=== PATIENT | female | born 1980 | race Caucasian/White ===

== ENCOUNTER 2024-01-10 07:59 | Day surgery (SDC) | payer MEDICAID ==
[2024-01-10] MEDS ORDERED: ACETAMINOPHEN 325 MG TABLET PO ONE (08:15)
[2024-01-10] MEDS: LACTATED RINGERS 1,000 ML IV ONE ×2 (08:35→10:44)
[2024-01-10] MEDS: ACETAMINOPHEN 325 MG TABLET PO PRN (08:39)
[2024-01-10] MEDS: metroNIDAZOLE 250 MG TABLET PO ONE (08:39)
[2024-01-10] MEDS ORDERED: fentaNYL 100 MCG/2 ML VIAL ONE (09:08)
[2024-01-10] MEDS ORDERED: PROPOFOL 500 MG/50 ML 500 MG/50 ML VIAL ONE (09:08)
[2024-01-10] MEDS ORDERED: MIDAZOLAM 2 MG/2 ML VIAL ONE (09:19)
[2024-01-10 09:30] LABS: BASOPHILS % (AUTO) 0.4 %; EOSINOPHILS # (AUTO) 0.1 10^3/uL (0.0-0.7); EOSINOPHILS % (AUTO) 1.7 %; HCT - HEMATOCRIT 37.5 % (37.0-47.0); HGB - HEMOGLOBIN 12.4 g/dL (12.0-16.0); LYMPHOCYTES # (AUTO) 2.1 10^3/uL (1.5-3.5); LYMPHOCYTES % (AUTO) 29.2 %; MEAN CORPUSCULAR HEMOGLOBIN 29.2 pg (27.0-31.0); MEAN CORPUSCULAR HGB CONC 33.1 g/dL (32.0-36.0); MEAN CORPUSCULAR VOLUME 88.4 fL (81.0-99.0); MEAN PLATELET VOLUME 9.7 fL (7.9-10.8); MONOCYTES # (AUTO) 0.5 10^3/uL (0.0-1.0); MONOCYTES % (AUTO) 7.4 %; NEUTROPHILS # (AUTO) 4.4 10^3/uL (1.5-6.6); NEUTROPHILS % (AUTO) 61.2 %; PLT - PLATELET COUNT 306 10^3/uL (130-450); RED BLOOD COUNT 4.24 10^6/uL (4.20-5.40); RED CELL DISTRIBUTION WIDTH 12.7 % (12.0-15.0); WHITE BLOOD COUNT 7.3 x10^3/uL (4.8-10.8)
--- NOTE | 2024-01-10 09:41 | ANESTHESIA ---
Pre-Anesthesia VS, & Labs - Diagnosis vaginal cuff lesion - Procedure vaginal biopsy Height: 5 ft 9 in Weight (kg): 85.9 kg Body Mass Index: 27.9 BMI Classification: Overweight - NPO >8 hours - Is Patient ?: No - Lab Results Current Lab Results: Laboratory Tests 01/10/24 09:02: WBC 7.3, RBC 4.24, Hgb 12.4, Hct 37.5, MCV 88.4, MCH 29.2, MCHC 33.1, RDW 12.7, Plt Count 306, MPV 9.7, Neut # (Auto) 4.4, Lymph # (Auto) 2.1, Fisher # (Auto) 0.5, Eos # (Auto) 0.1, Baso # (Auto) 0.0, Absolute Nucleated RBC 0.00, Nucleated RBC % 0.0 Lab results reviewed: Yes Fish Bones: 01/10/24 09:02 Home Medications and Allergies Home Medications: Ambulatory Orders No Known Home Medications 01/03/24 No Known Home Medications 01/03/24 Allergies/Adverse Reactions: Allergies Allergy/AdvReac Type Severity Reaction Status Date / Time No Known Drug Allergies Allergy Verified 01/03/24 11:24 Anes History & Medical History - Anesthetic History Anesthesia Complications: reports: No previous complications - Medical History Cardiovascular: reports: Pulmonary embolism (after breast reduction) Pulmonary: reports: None Gastrointestinal: reports: None Urinary: reports: None Musculoskeletal: reports: None Endocrine/Autoimmune: reports: None Skin: reports: None Smoking Status: Never smoker Psychosocial: reports: Cannabis (2x per week, edible) - Surgical History General: reports: Cholecystectomy Gynecologic: reports: Hysterectomy, Breast reduction Orthopedic: reports: Other Exam General: Alert, Oriented x3, Cooperative, No acute distress Dental: WNL Mouth Openin Fingerbreadth Neck Mobility: Normal Mallampati classification: II Thyromental Distance: 4-6 cm Mental/Cognitive Status: Alert/Oriented X3, Normal for patient Plan Anesthesia Type: General, Total IV Consent for Procedure(s) Verified and Reviewed: Yes Code Status: Attempt Resuscitation ASA classification: 1-Healthy patient Is this case an emergency?: No
[2024-01-10] MEDS ORDERED: BUPIVACAINE 0.5%-EPI 1:200000 PF 10 ML VIAL ONE (09:44)
[2024-01-10] MEDS ORDERED: KETOROLAC 30 MG/ML VIAL ONE (10:37)
[2024-01-10] MEDS ORDERED: oxyCODONE 5 MG TABLET PO PRN (10:59)
[2024-01-10 11:03] VITALS: BP 108/82; O2SAT 100
--- NOTE | 2024-01-10 11:11 | OPERATIVE REPORT ---
Operative Report - General Planned Procedure: removal of granulation tissue from top of vagina and removal of skin tags Pre-Op Diagnosis: granulation tissue at vaginal cuff, skin tags on vulva Procedure Performed: removal of granulation at top of vaginal cuff, removal of vulvar skin tags Post Op Diagnosis: same - Procedure Note Primary Surgeon: Zahraa Cook MD Anesthesia Provider: Ashley Strauss CRNA Anesthesia Technique: General mask, MAC Pathology: vaginal granulation tissue, vulvar skin tags. IV Fluids (mL): 700 Estimated Blood Loss (mL): 1 Urine Output (mL): 0 Indications: painful top of vagina with sex after hysterectomy last year. Granulation tissue noted on exam in office that was very painful. Also has skin tags she wanted removed at same time. Findings: small area of granulation tissue at time of vaginal cuff. Seems much smaller than what I saw in the office last week. Also 6 skin tags on the right vulva and one at just above the anus. Complications: none - Other Other Information/Narrative: Carlee was brought to the OR after signing consents, reviewing procedures. She declines blood transfusion if needed. She does have documentation regarding what products she will take scanned into her chart. In the operating room, IV sedation is given. Her legs are placed in Samy stirrups. She is prepped and draped in normal sterile fashion. time out is done. The skin lesions are injected with marcaine 0.25% with epi, total 8 cc. The speculum is placed and granulation tissue is identified. It appears much smaller than what I saw in the office. This area is injected with marcaine with epi. The tissue is removed using the Shirley scissors. There is a small ball of vaginal tissue and this is removed with the scissors. The cuff is examined very carefully and no other abnormal tisssue is seen. Small area of bleeding is cauterized. The vagina appears normal. Attention then turned to her vulva. The skin tags are elevated with continuous pickling line pickler helper and cut off. There are 6 of them on the right side, the 2 areas on the labia minora, with 2 tags each, appear more warty, where the other 2 areas appear more like moles. There is a tiny one above the anus also removed. The lesions are removed at the level of the dermis. do not seem to need suture but I did use a bit a cautery and some glue. The pateint is awakened and brought to the recovery room in stable condition.
--- NOTE | 2024-01-10 13:22 | ANESTHESIA POST OP EVALUATION ---
Anesthesia Post Eval - Post Anesthesia Eval Vitals: Last Vital Signs Temp 36.1 C L 01/10/24 11:00 Pulse 74 01/10/24 11:00 Resp 16 01/10/24 11:00 BP 108/82 H 01/10/24 11:00 Pulse Ox 100 01/10/24 11:00 O2 Flow Rate CV Function Including HR & BP: Stable Pain Control: Satisfactory Nausea & Vomiting: Negative Mental Status: Baseline Respiratory Status: Airway Patent Hydration Status: Satisfactory Anesthesia Complications: None
== END 2024-01-10 08:00 | disposition home or self-care (01) ==
LOC: OR 07:59
PROVIDERS: ATTEND Obstetrics & Gynecology
PROC: 0UBG7ZX Excision of Vagina, Via Natural or Artificial Opening, Diagnostic (ICD-10-PCS; 2024-01-10)
PROC: 0UBMXZZ Excision of Vulva, External Approach (ICD-10-PCS; principal; 2024-01-10 10:00)
DX: L92.9 Granulomatous disorder of the skin and subcutaneous tissue, unspecified (principal); N90.89 Other specified noninflammatory disorders of vulva and perineum; R10.2 Pelvic and perineal pain; N94.10 Unspecified dyspareunia; L91.8 Other hypertrophic disorders of the skin; K64.4 Residual hemorrhoidal skin tags
CPT/HCPCS: 11200; 57100; 85025; A9270; J7120